=== PATIENT | male | born 1965 | race Two or more races ===

== ENCOUNTER 2018-10-03 10:38 | Emergency (ER) | payer OTHER ==
[2018-10-03 10:39] VITALS: BMI 28.6
[2018-10-03 10:49] VITALS: TEMP 98.5; O2SAT 97
--- NOTE | 2018-10-03 11:12 | C.PDOC ---
History Of Present Illness 52 year old male, with history of alcohol abuse and is a daily drinker, comes to ER reporting symptoms of withdrawal - including tremors and generalized malaise. Patient reports his last alcoholic drink was yesterday at 6pm. He was initially at [facility] for a scheduled right cataract surgery but did not have the procedure due to elevated blood pressure. Patient was given labetalol 10mg IV at 10am per surgicenter, with no relief of symptoms. Patient currently deneis any headache, vomiting, eye pain, and offers no additional complaints. PMD: Dr. Billingsley Time Seen by Provider: 10/03/18 10:50 Chief Complaint (Nursing): High Blood Pressure History Per: Patient History/Exam Limitations: no limitations Onset/Duration Of Symptoms: Days Current Symptoms Are (Timing): Still Present Past Medical History Reviewed: Historical Data, Nursing Documentation, Vital Signs Vital Signs: Last Vital Signs Temp 98.5 F 10/03/18 10:44 Pulse 69 10/03/18 10:44 Resp 18 10/03/18 10:44 BP 182/134 H 10/03/18 10:44 Pulse Ox 97 10/03/18 10:44 - Medical History PMH: HTN Surgical History: No Surg Hx Family History: States: No Known Family Hx - Social History Hx Alcohol Use: Yes (daily drinker) Hx Substance Use: No - Immunization History Hx Tetanus Toxoid Vaccination: No Hx Influenza Vaccination: No Review Of Systems Except As Marked, All Systems Reviewed And Found Negative. Constitutional: Positive for: Malaise. Negative for: Weakness Eyes: Negative for: Pain, Vision Change Gastrointestinal: Negative for: Vomiting Neurological: Negative for: Headache Psych: Positive for: Withdrawal Physical Exam - Physical Exam Appears: No Acute Distress Skin: Normal Color Head: Atraumatic, Normacephalic Eye(s): bilateral: EOMI, right: Other (right eye with dialated pupil), left: PERRL Neck: Supple Chest: Symmetrical Cardiovascular: Other (tachycardia) Respiratory: Normal Breath Sounds Gastrointestinal/Abdominal: Normal Exam, Soft Extremity: Normal ROM Neurological/Psych: Oriented x3 ED Course And Treatment - Laboratory Results Result Diagrams: 10/03/18 11:10 10/03/18 11:10 O2 Sat by Pulse Oximetry: 97 (RA) Pulse Ox Interpretation: Normal Medical Decision Making Medical Decision Making: Impression: 52yo male with alcohol withdrawal, elevated blood pressure Plan: * Labs * Crisis evaluation * Librium 150mg PO * Labetalol 20mg IV 1200 On reassessment, patient reports improvement in symptoms. Patient assessed by crisis team and he states at this time, he does not want inpatient detox; patient given referral for outpatient detox. Patient evaluated and observed in the ED for 4 hours. PAtient improved and no longer tremulous and reported feeling better. BP improved. Patient states he contacted his PMD DR Billingsley who can see him today at 4pm and wants to be discharged. Disposition Counseled Patient/Family Regarding: Studies Performed, Diagnosis, Need For Followup - Disposition Referrals: Yahir Billingsley MD [Staff Provider] - Disposition: HOME/ ROUTINE Disposition Time: 15:03 Condition: STABLE Additional Instructions: Follow up with your primary medical doctor or clinic in 2-5 days for further evaluation. Take your usual medications as prescribed. Return to the emergency department at any time if symptoms persist or worsen. Instructions: High Blood Pressure Emergencies Forms: [employer] (Cameroonian) - POA Present On Arrival: None - Clinical Impression Clinical Impression: Alcohol abuse, Cataract, right eye, Hypertensive urgency - PA / IMMUNOPATHOLOGIST / Resident Statement MD/DO has reviewed & agrees with the documentation as recorded. - Scribe Statement The provider has reviewed the documentation as recorded by the Kedar Mensah Provider Attestation: All medical record entries made by the Kedar were at my direction and personal ly dictated by me. I have reviewed the chart and agree that the record accurately reflects my personal performance of the history, physical exam, medical decision making, and the department course for this patient. I have also personally directed, reviewed, and agree with the discharge instructions and disposition.
[2018-10-03 11:19] LABS: SQUAMOUS EPITHIAL 1 /hpf (0-5); URINE BACTERIA RARE (<OCC); URINE BILIRUBIN NEGATIVE (NEGATIVE); URINE BLOOD NEGATIVE (NEGATIVE); URINE CLARITY Clear (Clear); URINE COLOR Yellow (YELLOW); URINE GLUCOSE (UA) NORMAL (Normal); URINE LEUKOCYTE ESTERASE NEG Leu/uL (Negative); URINE PROTEIN 1+ mg/dL (NEGATIVE)
[2018-10-03 11:21] LABS: BASO # 0.1 K/uL (0.0-0.2); BASO % 0.8 % (0.0-2.0); EOS # 0.1 K/uL (0.0-0.7); EOS % 0.5 % (0.0-4.0); HEMOGLOBIN 15.5 g/dL (12.0-18.0); LYMPH % 17.9 % (20.0-40.0); MEAN CELL VOLUME 89.4 fL (80.0-94.0); MEAN CORPUSCULAR HEMOGLOBIN 30.4 pg (27.0-31.0); MONO # 0.7 K/uL (0.0-0.8); MONO % 5.8 % (0.0-10.0); NEUT # 8.5 K/uL (1.8-7.0); NRBC % 0.1 % (0.0-2.0); RBC 5.1 Mil/uL (4.40-5.90); RED CELL DISTRIBUTION WIDTH 14.2 % (11.5-14.5); WHITE BLOOD COUNT 11.3 K/uL (4.8-10.8)
[2018-10-03 11:33] LABS: ALB/GLOB RATIO 1.6 (1.0-2.1); ALBUMIN 4.6 g/dL (3.5-5.0); ALT/SGPT 50 U/L (21-72); AST/SGOT 55 U/L (17-59); BLOOD UREA NITROGEN 9 mg/dL (9-20); CALCIUM 9.3 mg/dl (8.6-10.4); GFR NON-AFRICAN AMERICAN > 60
[2018-10-03 11:45] LABS: BARBITURATES, UR NEGATIVE (NEGATIVE); BENZODIAZEPINES, UR NEGATIVE (NEGATIVE); OPIATES, UR NEGATIVE (NEGATIVE); PHENCYCLIDINE, UR NEGATIVE (NEGATIVE)
[2018-10-03] MEDS ORDERED: Labetalol 25mg/5ml Syringe IV STA (11:59)
[2018-10-03] MEDS ORDERED: Labetalol 5mg/ml (4ml) ONE (12:38)
[2018-10-04 00:10] VITALS: BP 127/95; PULSE 81; RESP 16
== END 2018-10-03 15:38 | disposition home or self-care (01) ==
LOC: C.ER 10:38
DX: F10.239 Alcohol dependence with withdrawal, unspecified (principal); Y90.9 Presence of alcohol in blood, level not specified; H26.9 Unspecified cataract; I16.0 Hypertensive urgency

== ENCOUNTER 2018-10-03 17:00 | Inpatient (IN) | payer OTHER ==
[2018-10-03 17:00] VITALS: BMI 28.6
--- NOTE | 2018-10-03 17:19 | C.PDOC ---
History Of Present Illness 52yo male, with history of hypertension, alcohol use, comes to ER requesting detox. Patient was seen in the ER earlier and went to see his PMD Dr. Billingsley 1 hour ago. Patient now returns, stating he is "ready" for detox. He denies any alcohol use today. No additional complaints. <LouisMary Kelly - Last Filed: 10/03/18 18:55> History Per: Patient History/Exam Limitations: no limitations Suicide/Self Injury Attempted (Context): None <LouisMary L - Last Filed: 10/03/18 18:55> <Concetta Givens - Last Filed: 10/03/18 20:45> Time Seen by Provider: 10/03/18 17:13 Chief Complaint (Nursing): Substance Abuse Past Medical History Reviewed: Historical Data, Nursing Documentation, Vital Signs Vital Signs: Last Vital Signs Temp 97.7 F 10/03/18 17:07 Pulse 70 10/03/18 17:07 Resp 18 10/03/18 17:07 BP 164/117 H 10/03/18 17:07 Pulse Ox 98 10/03/18 17:07 - Medical History PMH: HTN Surgical History: No Surg Hx Family History: States: No Known Family Hx - Social History Hx Alcohol Use: Yes (daily drinker) Hx Substance Use: No - Immunization History Hx Tetanus Toxoid Vaccination: No Hx Influenza Vaccination: No <LouisMary Kelly - Last Filed: 10/03/18 18:55> Vital Signs: Last Vital Signs Temp 98 F 10/03/18 19:30 Pulse 79 10/03/18 19:30 Resp 18 10/03/18 19:30 BP 163/72 H 10/03/18 19:30 Pulse Ox 98 10/03/18 19:30 <Enma Givensdi - Last Filed: 10/03/18 20:45> Review Of Systems Except As Marked, All Systems Reviewed And Found Negative. (as per HPI) Psych: Positive for: Withdrawal (mild tremors) <LouisMary L - Last Filed: 10/03/18 18:55> Physical Exam - Physical Exam Appears: Non-toxic, No Acute Distress Skin: Normal Color Head: Atraumatic, Normacephalic Eye(s): bilateral: Normal Inspection Neck: Supple Chest: Symmetrical Cardiovascular: Rhythm Regular Respiratory: Normal Breath Sounds Gastrointestinal/Abdominal: Normal Exam, Soft Extremity: Other (mild tremors) Neurological/Psych: Oriented x3 <Mary Myers Last Filed: 10/03/18 18:55> ED Course And Treatment O2 Sat by Pulse Oximetry: 98 (RA) Pulse Ox Interpretation: Normal <Mary Myers Last Filed: 10/03/18 18:55> Medical Decision Making Medical Decision Making: Impression: Alcohol use Patient had labs earlier today and WNL Plan: -- Breathalyzer -- Urine drug screen -- Crisis evaluation Progress: Breathalyzer was 0. 1900 Patient to be signed out to Dr. Givens pending UDS, crisis evaluation. <Mary Myers Last Filed: 10/03/18 18:55> Disposition - Disposition Disposition Time: 19:00 - POA Present On Arrival: None <Mary Myers Last Filed: 10/03/18 18:55> Discussed With DrLori: Bonnie Ware Comment: accepted the pt on her service And took over the care at 8:44 PM Doctor Will See Patient In The: Hospital Counseled Patient/Family Regarding: Studies Performed, Diagnosis <Concetta Givens - Last Filed: 10/03/18 20:45> - Disposition Disposition: HOSPITALIZED Condition: FAIR Forms: [facility] (Nepali) - Clinical Impression Clinical Impression: Alcohol abuse - Scribe Statement The provider has reviewed the documentation as recorded by the Kedar Mensah Provider attestation: All medical record entries made by the Kedar were at my direction and personally dictated by me. I have reviewed the chart and agree that the record accurately reflects my personal performance of the history, physical exam, medical decision making, and the department course for this patient. I have also personally directed, reviewed, and agree with the discharge instructions and disposition. <Mary Myers Last Filed: 10/03/18 18:55> Physician Patient Turnover Patient Signed Over To: Concetta Givens Handoff Comments: Pending UDS, Crisis eval and dispo <Mary Myers Last Filed: 10/03/18 18:55> Decision To Admit <Mary Myers Last Filed: 10/03/18 18:55> - Pt Status Changed To: Hospital Disposition Of: Inpatient - Admit Certification Admit to Inpatient:: After my assessment, the patient will require hospitalization for at least two midnights. This is because of the severity of symptoms shown, intensity of services needed, and/or the medical risk in this patient being treated as an outpatient. - InPatient: Physician Admission Certification: I certify that this patient requires 2 or more midnights of care for the following reason:: After my assessment, the patient will require hospitalization for at least two midnights. This is because of the severity of symptoms shown, intensity of services needed, and/or the medical risk in this patient being treated as an outpatient. - . Bed Request Type: Detox Admitting Physician: Bonnie Ware <Concetta Givens - Last Filed: 10/03/18 20:45> - . Patient Diagnosis: Alcohol abuse
[2018-10-03 19:20] LABS: BARBITURATES, UR NEGATIVE (NEGATIVE); OPIATES, UR NEGATIVE (NEGATIVE); PHENCYCLIDINE, UR NEGATIVE (NEGATIVE)
[2018-10-03 19:24] LABS: BENZODIAZEPINES, UR POSITIVE (NEGATIVE)
[2018-10-03 21:02] LABS: BASO # 0.1 K/uL (0.0-0.2); BASO % 0.7 % (0.0-2.0); EOS # 0.3 K/uL (0.0-0.7); HEMOGLOBIN 14.4 g/dL (12.0-18.0); LYMPH # 2.3 K/uL (1.0-4.3); LYMPH % 26.4 % (20.0-40.0); MEAN CELL VOLUME 89.7 fL (80.0-94.0); MEAN CORPUSCULAR HEMOGLOBIN 30.7 pg (27.0-31.0); MEAN CORPUSCULAR HGB CONC 34.3 g/dL (33.0-37.0); MEAN PLATELET VOLUME 7.6 fL (7.2-11.7); MONO # 0.5 K/uL (0.0-0.8); MONO % 5.5 % (0.0-10.0); NEUT # 5.6 K/uL (1.8-7.0); NEUT % 64.4 % (50.0-75.0); NRBC % 0.1 % (0.0-2.0); RBC 4.7 Mil/uL (4.40-5.90); WHITE BLOOD COUNT 8.8 K/uL (4.8-10.8)
--- NOTE | 2018-10-03 21:12 | PCM.BM ---
<Laura Patrick - Last Filed: 10/03/18 21:11> Treatment Plan Problems - Problems identified on initial assessmt potiential for autonomic instability related to alcohol withdrawal Date Initiated: 10/03/18 Time Initiated: 21:11 Assessment reference: NA Status: Active Treatment assets and liabiliti Patient Assests: self-reliant, ADL independent, good support system, cognitively intact Patient Liabilities: substance abuse, medical problems - Milieu Protocol Maintain good personal hygiene: daily Encourage regular showers, daily Remind patient to perform daily oral care, daily Assist patient to perform ADL's Maintain personal safety: every shift Educate patient to report safety concerns to staff, every shift Monitor environment for contraband/sharps Medication safety: Monitor for expected outcome, potential side effects: every shift, Assess barriers to learning: every shift, Assess readiness for medication education: every shift <Rosa Elena Greene - Last Filed: 10/04/18 14:15> Family Contact Family involvement: Famliy/SO not involved - Goals for Treatment Patient goals for treatment: Complete detox and transition to an IOP in [place], [place]. Discharge/Continuing Care - Education Needs Education Needs: Patient Medication, Patient Diagnosis/Disease Process, Patient Coping Skills, Patient Anger Management skills, Patient Placement options, Patient Community resources - Discharge Discharge Criteria: No longer exhibiting s/s of withdrawal, Reduction of target symptoms Discharge to:: Home - Treatment Team Participation Patient/Family/SO Statement: 10/04/18 14:14 "I'll go to an IOP that's close to me..." Discussed with Family/SO: No Was Patient/Family/SO present at Treatment Team Meeting: Yes
[2018-10-03] MEDS ORDERED: Magnesium Oxide 400 mg Tab UD PO STA (21:19)
[2018-10-03 21:25] LABS: ALB/GLOB RATIO 1.8 (1.0-2.1); ALBUMIN 3.9 g/dL (3.5-5.0); ALT/SGPT 36 U/L (21-72); AST/SGOT 36 U/L (17-59); BLOOD UREA NITROGEN 14 mg/dL (9-20); CALCIUM 9.1 mg/dl (8.6-10.4); GFR NON-AFRICAN AMERICAN > 60
[2018-10-04] MEDS: Multiple Vitamins Tab PO SCH (10:06)
--- NOTE | 2018-10-05 00:16 | PCM.PSYCH ---
Initial Psychiatric Evaluation - Initial Psychiatric Evaluation Type of Admission: Voluntary Legal Status: Capacity History of Present Illness and Precipitating Events: Patient is a 52 year old male who is , lives with his , and currently works as a [employer] man. Yesterday morning the patient was about to undergo cataract surgery, when his blood pressure escalated. He was immediately sent to the Emergency Room, where he was stabilized and admitted to Detox the same day. He was admitted to detox on the basis that his blood pressure escalation was partly due to alcohol withdrawal symptoms. Patient states that he normally drinks 12-16 drinks a day, with his last alcoholic beverage being Wednesday (10/02/18) at 6 pm. He started drinking when he was 10. He uses marijuana occasionally. He denies other drugs. He currently smokes 5 cigarettes a day. He states that he has never been to detox or rehab before. He says that he sporadically attends Alcoholics Anonymous meetings. His family history is positive for alcohol use disorder in both his mother and grandmother. He denies having any previously diagnosed psychiatric conditions in himself or his family members. His past medical history is positive for Hypertension. Current Medications: Active Medications Generic Name Dose Route Start Last Admin Trade Name Freq PRN Reason Stop Dose Admin Chlordiazepoxide 25 mg 10/03/18 22:06 10/04/18 13:44 Librium PO 25 mg Q4 PRN Administration alcohol withdrawal Chlordiazepoxide 25 mg 10/04/18 10:00 10/04/18 21:27 Librium PO 10/09/18 09:59 25 mg Q6H NURY Administration Taper Clonidine HCl 0.1 mg 10/04/18 05:57 10/04/18 13:43 Catapres PO 0.1 mg Q6 PRN Administration alcohol withdrawal Folic Acid 1 mg 10/04/18 10:00 10/04/18 10:06 Folic Acid PO 1 mg DAILY NURY Administration Influenza Virus Vaccine 60 mcg 10/07/18 10:00 Fluzone Quad [id number] IM 10/07/18 10:01 .ONCE ONE Losartan Potassium 50 mg 10/04/18 14:00 10/04/18 14:16 Cozaar PO 50 mg DAILY NURY Administration Multivitamins 1 tab 10/04/18 10:00 10/04/18 10:06 Hexavitamin PO 1 tab DAILY NURY Administration Naltrexone HCl 50 mg 10/04/18 10:15 10/04/18 10:11 Revia PO 50 mg DAILY NURY Administration Pneumococcal Polyvalent Vaccine 0.5 ml 10/07/18 10:00 Pneumovax 23 Vaccine IM 10/07/18 10:01 .ONCE ONE Thiamine HCl 100 mg 10/04/18 10:00 10/04/18 10:06 Vitamin B1 Tab PO 100 mg DAILY NURY Administration Trazodone HCl 50 mg 10/03/18 22:09 10/04/18 21:27 Desyrel PO 50 mg HS PRN Administration insomnia Past Psychiatric History - Past Psychiatric History Previous Treatment History: None Pertinent Medical Hx (Current Medical&Sleep Prob, Allergies): Allergies Allergy/AdvReac Type Severity Reaction Status Date / Time No Known Allergies Allergy Verified 08/21/15 12:00 RX: No Known Home Med 10/03/18 Review of Systems - Review of Systems Systems not reviewed;Unavailable: Acuity of Condition - Psychiatric Psychiatric: Abnormal Sleep Pattern, Anxiety, Depression, Difficulty Concentrating, Irritability. absent: Hallucinations, Homicidal Ideation, Suicidal Ideation Mental Status Examination - Personal Presentation Personal Presentation: Looks stated age - Affect Affect: Constricted - Motor Activity Motor Activity: Calm - Reliability in Providing Information Reliability in Providing Information: Good - Speech Speech: Organized - Mood Mood: Depressed, Anxious - Formal Thought Process Formal Thought Process: No Impairment - Obsessions/Compulsions Obsessions: No Compulsions: No - Cognitive Functions Orientation: Person, Place, Situation, Time Sensorium: Alert Attention/Concentration: Easily distracted Estimate of Intelligence: Average Judgement: Intact, as evidence by: Insight regarding need for hospitalization Memory: Recent intact, as evidence by: Ability to recall events of the day, Remote intact, as evidenced by: Abilit to recall sig. life events - Risk Risk: Withdrawal, Diminished functioning - Strength & Assets Inventory Strength & Assets Inventory: Cooperative - Limitations Limitations: Other DSM 5 DX - DSM 5 DSM 5 Diagnosis: Alcohol withdral Alcohol use d/o severe - Recommended/Plan of Treatment Treatment Recommendations and Plan of Treatment: Taper with librium As needed medications Gabapentin for augmentation if needed All risks, benefits and alternatives of medications, including no medications, discussed and the patient understood and agreed. Attend groups and activities Supportive therapy and psychoeducation [facility] for abstinence CBT for relapse prevention Encourage MAT Refer to rehab or IOP Attend self-help groups as well [facility] for smoking cessation and patch if needed 34 min Projected ELOS: 4-5 days - Smoking Cessation Smoking Cessation Initiated: Yes
[2018-10-05] MEDS: Multiple Vitamins Tab PO SCH (09:17)
[2018-10-06] MEDS: Multiple Vitamins Tab PO SCH (09:26)
--- NOTE | 2018-10-06 12:47 | PCM.PYCHPN ---
Psychiatric Progress Note - Psychiatric Progress Note Patient seen today, length of contact: 16 min Medication Change: Yes Medical Record Reviewed: Yes Mental Status Examination - Cognitive Function Orientation: Person, Place, Situation, Time - Mood Mood: Depressed, Anxious - Affect Affect: Constricted - Formal Thought Process Formal Thought Process: No Impairment - Homicidal Ideation Homicidal Ideation: No Goal/Treatment Plan - Goal/Treatment Plan Progress Toward Problem(s) and Goals/Treatment Plan: Taper with librium As needed medications Gabapentin for augmentation if needed All risks, benefits and alternatives of medications, including no medications, discussed and the patient understood and agreed. Attend groups and activities Supportive therapy and psychoeducation [facility] for abstinence CBT for relapse prevention Encourage MAT Refer to rehab or IOP Attend self-help groups as well [facility] for smoking cessation and patch if needed 34 min
--- NOTE | 2018-10-06 15:47 | PCM.PYCHPN ---
Psychiatric Progress Note - Psychiatric Progress Note Patient seen today, length of contact: 16 min Medication Change: No Medical Record Reviewed: Yes Mental Status Examination - Cognitive Function Orientation: Person, Place, Situation, Time - Mood Mood: Depressed, Anxious - Affect Affect: Constricted - Formal Thought Process Formal Thought Process: No Impairment - Homicidal Ideation Homicidal Ideation: No
[2018-10-06 19:02] VITALS: O2SAT 96
--- NOTE | 2018-10-07 08:23 | PCM.PYCHDC ---
Mental Status Examination - Mental Status Examination Orientation: Person, Place, Situation, Time Memory: Intact Mood: Anxious Affect: Constricted Speech: Appropriate Attention: WNL Concentration: WNL Association: WNL Fund of Knowledge: WNL Formal Thought Process: No Impairment Suicidal Ideation: No Current Homicidal Ideation?: No Discharge Summary - Discharge Note Consultations:: List each consultation separately and include: 1. Reason for request. 2. Findings. 3. Follow-up Summary of Hospital Course include:: 1. Description of specific treatment plan utilized for patients during their course of treatmen. 2. Summarize the time- course for resolution of acute symptoms and/or regressed behaviors. 3. Describe issues identified and worked on during hospitalization. 4. Describe medication utilized. 5. Describe medical problems identified and treated. 6. Reassessment of suicide risk Summary of Hospital Course: Patient is a 52 year old male who is , lives with his , and currently works as a [employer] man. Yesterday morning the patient was about to undergo cataract surgery, when his blood pressure escalated. He was immediately sent to the Emergency Room, where he was stabilized and admitted to Detox the same day. He was admitted to detox on the basis that his blood pressure escalation was partly due to alcohol withdrawal symptoms. Patient states that he normally drinks 12-16 drinks a day, with his last alcoholic beverage being Wednesday (10/02/18) at 6 pm. He started drinking when he was 10. He uses marijuana occasionally. He denies other drugs. He currently smokes 5 cigarettes a day. He states that he has never been to detox or rehab before. He says that he sporadically attends Alcoholics Anonymous meetings. His family history is positive for alcohol use disorder in both his mother and grandmother. He denies having any previously diagnosed psychiatric conditions in himself or his family members. His past medical history is positive for Hypertension. On Admission: Hospital course: The pt was admitted and started on treatment with psychotherapy, support, psychoeducation and medications. AK and CBT used. The pt attended groups and activities, as well as milieu therapy. All the risks and benefits of medications are discussed and the patient u nderstood and agreed. The pt improved with the treatments provided. After care discussed with the patient. He will go to [place] [facility]. - Final Diagnosis (DSM 5) Condition upon Discharge: FAIR DSM 5: Alcohol withdral Alcohol use d/o severe Disposition: HOME/ ROUTINE Follow-up Treatment Plan: Continue below medications after discharge. Follow after care plan as discussed. Use relapse prevention skills Return to ER or call 911 if suicidal, homicidal or symptoms relapse. Stay away from stress, alcohol and drugs. See primary doctor regularly and get labs. Prescriptions/Medication Reconciliation: Losartan [Cozaar] 50 mg PO DAILY #30 tab Naltrexone [Revia] 50 mg PO DAILY #30 tab traZODone [Desyrel] 50 mg PO HS PRN #30 tab PRN Reason: insomnia
[2018-10-07 09:24] VITALS: BP 144/93; PULSE 83; RESP 18; TEMP 98.6
[2018-10-07] MEDS: Multiple Vitamins Tab PO SCH (09:33)
[2018-10-07] MEDS ORDERED: Influenza Vaccine 60 MCG/0.5 ML SYR (3 yr & up) IM ONE (10:00)
[2018-10-07] MEDS ORDERED: Pneumococcal 23-Valent Vaccine IM ONE (10:00)
== END 2018-10-07 11:00 | disposition home or self-care (01) | DRG 895 ==
LOC: C.ER 17:00 → C.7D 20:43
PROVIDERS: ADMIT Psychiatry & Neurology Psychiatry; ATTEND Psychiatry & Neurology Psychiatry
PROC: HZ2ZZZZ Detoxification Services for Substance Abuse Treatment (ICD-10-PCS; principal; 2018-10-03)
PROC: HZ52ZZZ Individual Psychotherapy for Substance Abuse Treatment, Cognitive-Behavioral (ICD-10-PCS; 2018-10-03)
PROC: HZ59ZZZ Individual Psychotherapy for Substance Abuse Treatment, Supportive (ICD-10-PCS; 2018-10-03)
PROC: HZ56ZZZ Individual Psychotherapy for Substance Abuse Treatment, Psychoeducation (ICD-10-PCS; 2018-10-03)
DX: F10.239 Alcohol dependence with withdrawal, unspecified (principal); F12.90 Cannabis use, unspecified, uncomplicated; F17.210 Nicotine dependence, cigarettes, uncomplicated; I10 Essential (primary) hypertension